=== PATIENT | male | born 1990 | race Caucasian/White ===

== ENCOUNTER 2017-11-23 19:11 | Emergency (ER) | payer OTHER ==
[2017-11-23 19:15] VITALS: TEMP 98; BMI 24.3
--- NOTE | 2017-11-23 19:46 | PDOC ---
History of Present Illness - History of Present Illness Initial Comments: 11/23/17 20:08 The patient is a 27 year old female with no significant PMH who presents to the emergency department with left shoulder dislocation. The patient was reaching down to pick something up when he felt that his left shoulder dislocated. The patient reports he has dislocated his left shoulder one other time but did not have it repaired at the time. The patient is not ranging his left arm and currently has it in a sling. The patient denies chest pain, shortness of breath, headache and dizziness. Denies fever, chills, nausea, vomit, diarrhea and constipation. Denies dysuria, frequency, urgency and hematuria. Allergies: NKA Past surgical history: None reported. Social history: No reported alcohol, drug, or cigarette use. PCP: Dr. Christy <Merline Galeano - Last Filed: 11/23/17 20:06> - General History Source: Patient Exam Limitations: No Limitations - History of Present Illness Initial Comments: A portion of this note was documented by scribe services under my direction. I have reviewed the details of the note, within reason, and agree with the documentation. The case summary and management plan written by me. Assessment and plan: This is a 27-year-old male who comes in with a left shoulder dislocation. Patient has history of similar shoulder dislocation in the past secondary to a new onset seizure disorder. Patient received moderate sedation and his shoulder was reduced without difficulty post reduction x-ray shows good position of the shoulder Patient discharged with his father will follow-up with an orthopedist. Wear the sling until you are seen by the orthopedist and cleared to remove it by the orthopedist <Jin Sun I - Last Filed: 11/23/17 21:04> - General Chief Complaint: Injury Stated Complaint: LT SHOULDER DISLOCATION Past History <Merline Galeano - Last Filed: 11/23/17 20:06> - Past Medical History COPD: No Psychiatric Problems: Yes - Suicide/Smoking/Psychosocial Hx Smoking History: Never smoked <Jin Sun I - Last Filed: 11/23/17 21:04> - Past Medical History Allergies/Adverse Reactions: Allergies Allergy/AdvReac Type Severity Reaction Status Date / Time No Known Allergies Allergy Unverified 11/23/17 19:12 Home Medications: Ambulatory Orders NK [No Known Home Medication] 11/23/17 Review of Systems - Review of Systems Able to Perform ROS?: Yes Comments:: 11/23/17 20:00 General: No fevers or chills, no weakness, no weight loss HEENT: No change in vision. No sore throat,. No ear pain CardioVascular: No chest pain or shortness of breath Respiratory:No cough, or wheezing. Gastrointestinal: no nausea, vomiting, diarrhea or constipation, No rectal bleeding Genitourinary: No dysuria, hematuria, or frequency Musculoskeletal: (+) Left shoulder pain. No muscle pain or swelling. Neurologic: No headache, vertigo, dizziness or loss of consciousness Psychiatric: nor depression Skin: No rashes or easy bruising Endocrine: no increased thirst or abnormal weight change Allergic: no skin or latex allergy All other systems reviewed and normal <Merline Galeano [employer] Last Filed: 11/23/17 20:06> *Physical Exam - Vital Signs Last Vital Signs Temp Pulse Resp BP Pulse Ox 98 F 55 L 18 133/87 100 11/23/17 19:13 11/23/17 19:13 11/23/17 19:13 11/23/17 19:16 11/23/17 19:13 - Physical Exam Comments: 11/23/17 20:01 General: Well-nourished well-developed individual, no acute distress HEENT: Throat: Normal, tonsils normal, no erythema or exudate Neck: Supple, no meningeal signs, no lymphadenopathy Eyes::Pupils equal reactive and round, extraocular motion intact Chest: Nontender to palpation Cardiac: S1-S2 normal, regular rate and rhythm, no murmurs rubs or gallops Respiratory: Lungs clear to auscultation bilateral Abdomen: Soft, nondistended, normal bowel sounds, nontender to palpation diffusely Extremities: (+) Deformity of left shoulder consistent with shoulder dislocation. Neurovascularly intact. Warm, dry, no cyanosis, clubbing, or edema Skin: No rashes Neuro: Alert and oriented x3, nonfocal exam, grossly intact, normal gait Psych: Normal mood and affect <Merline Galeano [employer] Last Filed: 11/23/17 20:06> - Vital Signs Last Vital Signs Temp Pulse Resp BP Pulse Ox 98 F 55 L 18 133/87 100 11/23/17 19:13 11/23/17 19:13 11/23/17 19:13 11/23/17 19:16 11/23/17 19:13 <Jin Sun I - Last Filed: 11/23/17 21:04> Moderate Sedation - Pre-Procedure Assessment Joint Reduction Med/Surg Hx & PE performed: Yes Vital Signs: Vital Signs Temp Pulse Resp BP Pulse Ox 98 F 55 L 17 121/74 97 11/23/17 19:13 11/23/17 20:50 11/23/17 20:50 11/23/17 20:50 11/23/17 20:50 Does the patient have a history of Obstructive Sleep Apnea: No Prior complications with sedation/analgesia: No NPO since (date): 11/22/17 Mallampati Score: I ASA Physical Status: Class I Consent obtained: Written, From Patient Time out called (time): 20:25 Items checked for time out procedure: All work stopped, Patient identified using 2 identifiers, Procedure to be performed verified & agreed, Allergies noted, Consent read, ED physician/[employer]/PA/Resident identified, Patient position verified, All active procedure participants present from the beginning Sedation agent: Propofol - Post Procedure Assessment Tolerated procedure well: Yes Was a reversal agent used?: No Patient evaluation: Awake, alert and oriented, Vital signs reviewed, Cardiopulmonary exam normal, Pain controlled Printed Discharge Instructions given: Yes <Jin Sun I - Last Filed: 11/23/17 21:04> ED Treatment Course - Medications Given in the ED: ED Medications Discontinued Medications Generic Name Dose Route Start Last Admin Trade Name Suzi PRN Reason Stop Dose Admin Oxycodone/Acetaminophen 1 combo 11/23/17 19:46 11/23/17 19:50 Percocet 5/325 - PO 11/23/17 19:47 1 combo ONCE ONE Administration <Merline Galeano - Last Filed: 11/23/17 20:06> *DC/Admit/Observation/Transfer <Merline Galeano - Last Filed: 11/23/17 20:06> - Discharge Dispostion Decision to Admit order: No <Jin Sun Last Filed: 06/08/18 21:04> Diagnosis at time of Disposition: Recurrent dislocation, left shoulder - Discharge Dispostion Disposition: HOME Condition at time of disposition: Stable - Referrals Referrals: Jones Christy MD [Primary Care Provider] - - Patient Instructions Printed Discharge Instructions: DI for Moderate Sedation Additional Instructions: Return to the emergency department immediately with ANY new, persistent or worsening symptoms. Continue any medications as previously prescribed by your physician. You should follow up with your primary doctor as soon as possible regarding today's emergency department visit. . Please make sure your doctor reviews the results of your emergency evaluation. Thank you for coming to the Emergency Department today for your care. It was a pleasure to see you today. Please note that your evaluation is INCOMPLETE until you follow-up with your doctor. Follow-up with an orthopedist if you need an orthopedist call Dr Dr. Wang Ny at [phone] or an appointment on Sunday. - Post Discharge Activity
[2017-11-23] MEDS ORDERED: PROPOFOL 200 MG/20 ML VIAL IVPUSH ONE (20:10)
[2017-11-23] MEDS ORDERED: PROPOFOL 20 ML ONE (20:13)
[2017-11-23 22:01] VITALS: BP 121/76; PULSE 76
== END 2017-11-23 21:38 | disposition home or self-care (01) ==
LOC: FER 19:11
PROC: 0RSKXZZ Reposition Left Shoulder Joint, External Approach (ICD-10-PCS; principal; 2017-11-23)
DX: M24.412 Recurrent dislocation, left shoulder (principal); X58.XXXA Exposure to other specified factors, initial encounter; Y93.89 Activity, other specified; Y92.9 Unspecified place or not applicable
CPT/HCPCS: 73030-TC-LT-FY; 99283-25

== ENCOUNTER 2018-11-21 13:06 | Emergency (ER) | payer OTHER | END 2018-11-21 16:56 | disposition home or self-care (01) | LOC: FER 13:06 ==